=== PATIENT | female | born 1980 | race African-American/Black ===

== ENCOUNTER 2017-03-24 18:47 | Emergency (ER) | payer SELFPAY ==
[~2017-03-24] VITALS: Ht 165.1 cm; Wt 76.0 kg
[2017-03-24] MEDS ORDERED: LIDOCAINE HCL 1%/EPI 1:200,000 30 ML VIAL MC ONE (19:45)
[2017-03-24] MEDS ORDERED: HYDROCODONE/ACETAMINOPHEN 5/325MG TABLET PO ONE (19:45)
[2017-03-24] MEDS ORDERED: BACITRACIN ZINC OINT UDPKT TOP ONE (19:45)
[2017-03-24 20:18] VITALS: BP 128/74
[2017-03-24] MEDS ORDERED: LIDOCAINE HCL 1% 20ML VIAL (Pyxis) INJ ONE (20:18)
[2017-03-24] MEDS ORDERED: LIDOCAINE HCL 1% 20ML VIAL (Pyxis) INJ INFIL ONE (23:30)
== END 2017-03-24 21:53 | disposition home or self-care (01) ==
LOC: ER 18:47
DX: S51.811A Laceration without foreign body of right forearm, initial encounter (principal); F17.200 Nicotine dependence, unspecified, uncomplicated; W26.8XXA Contact with other sharp object(s), not elsewhere classified, initial encounter; Y93.89 Activity, other specified; Y92.89 Other specified places as the place of occurrence of the external cause; Y99.8 Other external cause status
CPT/HCPCS: 12002; 81025; 99283; J3490

== ENCOUNTER 2023-01-20 02:56 | Emergency (ER) | payer MEDICAID, OTHER ==
[~2023-01-20] VITALS: Ht 165.1 cm; Wt 89.0 kg
[2023-01-20 03:48] VITALS: O2SAT 98
[2023-01-20] MEDS ORDERED: SULF1TAB48 PO (05:45)
[2023-01-20] MEDS ORDERED: CEPH500T PO (05:45)
[2023-01-20 06:20] VITALS: BP 144/71; PULSE 78; RESP 18; TEMP 98.7
== END 2023-01-20 06:20 | disposition home or self-care (01) ==
LOC: ER 03:12
DX: L03.90 Cellulitis, unspecified (principal); F31.9 Bipolar disorder, unspecified; Z90.49 Acquired absence of other specified parts of digestive tract
CPT/HCPCS: 99283; Z7610; 99281

== ENCOUNTER 2023-02-03 15:20 | Emergency (ER) | payer SELFPAY ==
[~2023-02-03] VITALS: Ht 165.1 cm; Wt 88.0 kg
[~2023-02-03 15:20] MED LIST: CEPH500T PO; SULF1TAB48 PO
[2023-02-03 15:29] VITALS: BP 114/69; PULSE 104; RESP 16; TEMP 99; O2SAT 98
[2023-02-03] MEDS ORDERED: PERM60CR4 TP (15:38)
[2023-02-03] MEDS ORDERED: CETI10CA11 MT (15:38)
== END 2023-02-03 16:18 | disposition home or self-care (01) ==
LOC: ER 15:20
DX: F42.4 Excoriation (skin-picking) disorder (principal); I51.9 Heart disease, unspecified; F31.9 Bipolar disorder, unspecified; Z90.49 Acquired absence of other specified parts of digestive tract
CPT/HCPCS: 99282